=== PATIENT | female | born 1970 | race Caucasian/White ===

== ENCOUNTER → 2017-12-10 | Outpatient (CLI) | payer OTHER ==
[~2017-12-10] MED LIST: ACET325; IBUP800; MAGCIT300; METO100ER; METO50ER PO; SERT100; TRAZ100; VITAMIN D31000 UNIT; Vitamin B Comple1 EA
== END | disposition home or self-care (01) ==
LOC: PLD 07:45 → LAB SHORT 07:45
DX: D22.5 Melanocytic nevi of trunk (principal)
CPT/HCPCS: 88305

== ENCOUNTER → 2018-09-25 | Outpatient (CLI) | payer OTHER ==
[2018-09-27 15:07] LABS: HPV 16 Negative (Negative); HPV 18 Negative (Negative); HPV OTHER HR TYPES Negative (Negative)
== END | disposition home or self-care (01) ==
LOC: LAB 15:04 → LAB SHORT 15:04
PROVIDERS: Obstetrics & Gynecology Gynecology
DX: Z12.4 Encounter for screening for malignant neoplasm of cervix (principal)
CPT/HCPCS: 87624; G0123

== ENCOUNTER 2019-04-03 11:18 | Day surgery (SDC) | payer OTHER ==
[~2019-04-03] VITALS: Ht 167.6 cm; Wt 84.7 kg
[~2019-04-03 11:18] MED LIST changes: +ALBU90OI INH; +Estradiol1 MG PO; +MELATONIN5 M1 PO; +METO100 PO; +PROG100 PO; +SERT100 PO; +Tessalon200 MG PO
[2019-04-03] MEDS ORDERED: CAL MAG ZINC +1 EACH PO (12:02)
== END 2019-04-03 23:59 | disposition home or self-care (01) ==
LOC: ORSCSDS 11:18
PROVIDERS: Podiatrist
PROC: 0QBN0ZZ Excision of Right Metatarsal, Open Approach (ICD-10-PCS; principal; 2019-04-03 12:30)
PROC: 0QSN04Z Reposition Right Metatarsal with Internal Fixation Device, Open Approach (ICD-10-PCS; principal; 2019-04-03 12:30)
DX: M77.41 Metatarsalgia, right foot (principal); M20.21 Hallux rigidus, right foot; M24.571 Contracture, right ankle; Z79.899 Other long term (current) drug therapy
CPT/HCPCS: C1713; J0690; J1100; J1885; J2001; J2250; J2370; J2405; J2704; J2765; J3010; J7120

== ENCOUNTER 2023-04-05 06:43 | Day surgery (SDC) | payer BC ==
[2023-04-03 10:17] LABS: BASOPHILS ABSOLUTE AUTO 0.07 K/mm3 (0.00-0.23); BASOPHILS PERCENT AUTO 1 % (0-2); EOSINOPHILS ABSOLUTE AUTO 0.12 K/mm3 (0.00-0.68); EOSINOPHILS PERCENT AUTO 2 % (0-6); Hematocrit 38.7 % (33.0-51.0); Hemoglobin 13.9 g/dL (11.5-16.0); IMMATURE GRAN ABSOLUTE AUTO 0.02 K/mm3 (0.00-0.10); IMMATURE GRAN PERCENT AUTO 0 % (0-1); LYMPHOCYTES ABSOLUTE AUTO 1.74 K/mm3 (0.84-5.20); LYMPHOCYTES PERCENT AUTO 33 % (21-46); MONOCYTES ABSOLUTE AUTO 0.42 K/mm3 (0.16-1.47); MONOCYTES PERCENT AUTO 8 % (4-13); Mean Corpuscular HGB Conc 35.9 g/dL (31.5-36.5); Mean Corpuscular Volume 92 fL (80-100); Mean Platelet Volume 9.1 fL (9.1-12.4); NEUTROPHILS ABSOLUTE AUTO 2.88 K/mm3 (1.96-9.15); NEUTROPHILS PERCENT AUTO 55 % (41-73); Platelet Count 312 K/mm3 (150-400); RDW Standard Deviation 40.3 fL (35.1-46.3); Red Blood Cell Count 4.21 M/mm3 (3.80-5.20); White Blood Cell Count 5.25 K/mm3 (4.00-11.30)
[~2023-04-05] VITALS: Ht 167.6 cm; Wt 92.6 kg
[2023-04-05] VITALS (11 sets, daily range): BP systolic 99–127; BP diastolic 50–78
[~2023-04-05 06:43] MED LIST changes: +Adipex-P37.5 M1 PO; +CAL MAG ZINC +1 EACH PO; +ESTRADIOL (TWI1 EAC3 TD
--- NOTE | 2023-04-05 07:00 | NUR ---
Ambulatory in Day Surgery History, Chart, Medications and Allergies reviewed before start of procedure.Lungs clear T/O to Auscultation. Patient confirms NPO status and agrees with scheduled surgery. Patient reports completing Chlorhexadine shower X2 prior to admission to hospital.Surgical site prepped with 2% Chlorhexidine cloth wipe.
[2023-04-05] MEDS ORDERED: LORA10ER PO (07:05)
--- NOTE | 2023-04-05 11:45 | NUR ---
ARRIVAL PATIENT TO ROOM 219 VIA GURNEY, TRASNFERRED TO BED W/ SLIDER SHET AND SATFF ASSISTANCE. PATIENT A&O X4, VSS ON RA, REPORTS CRAMPING TO ABDOMEN, PLAN TO PLACE K PAD. PATIENT IS S/P LAP HYSTER, X4 LAP SITES W/ DERMABOND C/D/I. BOBBY PAD IN PLACE WITH VERY SCANT BLOOD NOTED. FLORIAN IN PALCE DRAINING TO GRAVITY. ORIENTED TO ROOM & CALL LIGHT, IN REACH.
--- NOTE | 2023-04-05 13:44 | NUR ---
Pt. is awake in beed and welcomes my visit. Pt. is pleasant and only verbalizes some mild discomfort in her shoulder. 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 Pts. daughter arrives. Condier maters of [place], belief, and life. Pt. displays evidence of being engaged and aware. Prayed with Pt. Pt. verbalized gratitude for the spiritual care visit.
[2023-04-05] MEDS ORDERED: IBUP800 PO (17:08)
[2023-04-05] MEDS ORDERED: Percocet 5-3251 EACH PO (17:09)
[2023-04-05] MEDS ORDERED: PROM12.5S PR (17:09)
[2023-04-05] MEDS ORDERED: SIME80CH PO (17:10)
--- NOTE | 2023-04-05 17:46 | NUR ---
DISCHARGE SUMMARY PT A&OX4, VSS/RA, DONAVAN PO, VOIDING, PAIN MANAGED, AMBULATING HALLWAY, ABD BINDER ON, IVs X2 DC'D, DC INS PROVIDED, PT REP UNDERSTANDING THOSE INSTRUCTIONS. LEFT FLOOR VIA WC WITH RUG LAYER TO GO HOME WITH , WITH ALL PERSONAL POSSESSIONS INCLUDING DC PACKET; REP HAVING MEDS FROM DR Bahena AT HOME.
== END 2023-04-05 18:01 | disposition home or self-care (01) ==
LOC: ORSCMMR 06:43 → ORD 08:00 → ORSCMMR 08:00 → SURS 11:38 → ORSCMMR 18:01
PROVIDERS: Obstetrics & Gynecology
PROC: 0UT2FZZ Resection of Bilateral Ovaries, Via Natural or Artificial Opening With Percutaneous Endoscopic Assistance (ICD-10-PCS; principal; 2023-04-05 08:00)
PROC: 0UT9FZZ Resection of Uterus, Via Natural or Artificial Opening With Percutaneous Endoscopic Assistance (ICD-10-PCS; principal; 2023-04-05 08:00)
PROC: 8E0W8CZ Robotic Assisted Procedure of Trunk Region, Via Natural or Artificial Opening Endoscopic (ICD-10-PCS; principal; 2023-04-05 08:00)
PROC: 0U5F4ZZ Destruction of Cul-de-sac, Percutaneous Endoscopic Approach (ICD-10-PCS; principal; 2023-04-05 08:00)
PROC: 0UT7FZZ Resection of Bilateral Fallopian Tubes, Via Natural or Artificial Opening With Percutaneous Endoscopic Assistance (ICD-10-PCS; principal; 2023-04-05 08:00)
DX: N95.0 Postmenopausal bleeding (principal); N94.6 Dysmenorrhea, unspecified; N80.03 Adenomyosis of the uterus; D25.9 Leiomyoma of uterus, unspecified; N80.30 Endometriosis of pelvic peritoneum, unspecified; I10 Essential (primary) hypertension; K21.9 Gastro-esophageal reflux disease without esophagitis; Z79.899 Other long term (current) drug therapy
CPT/HCPCS: 36415; 85025; 86850; 86900; 86901; 88305; 88307; A9270; J0690; J1100; J1885; J2250; J2371; J2405; J2704; J3010; J7120